=== PATIENT | female | born 1955 | race Caucasian/White ===

== ENCOUNTER 2020-06-24 02:26 | Emergency (ER) | payer MEDICARE, OTHER ==
[2020-06-24] MEDS ORDERED: Diazepam 5 MG TAB ONE (03:57)
[2020-06-24 04:22] LABS: Bacteria/HPF 1+ HPF (None Seen); Bilirubin Negative (Negative); Blood, Urine Negative (Negative); Clarity Clear (Clear); Glucose, Urine (Dipstick) Normal (Negative); Ketone, Urine Negative (Negative); Leukocyte 500 Leu/uL (Negative); Nitrite Negative (Negative); Protein, Urine (Dipstick) Negative (Neg-Trace); RBC/HPF 0-3 HPF (0-3); Squamous Epithelial 0-3 HPF (0-3); Urobilinogen Normal mg/dL (Less than 2)
--- NOTE | 2020-06-24 08:07 | RAD ---
EXAM: Two views chest PROVIDED CLINICAL HISTORY: Back pain COMPARISON: 10/07/2015 FINDINGS: Cardiac and mediastinal silhouette is unchanged in appearance. Lungs appear free of significant opaci ty. No pleural fluid or pneumothorax apparent. IVC filter demonstrated on the lateral view. IMPRESSION: No evidence for an acute cardiopulmonary process.
== END 2020-06-24 05:10 | disposition home or self-care (01) ==
LOC: ERS 02:26
DX: M62.830 Muscle spasm of back (principal); E11.9 Type 2 diabetes mellitus without complications; Z79.4 Long term (current) use of insulin; Z79.899 Other long term (current) drug therapy
CPT/HCPCS: 71046; 81003; 81015; 93005

== ENCOUNTER 2020-06-25 15:37 | Observation (INO) | payer MEDICARE, OTHER ==
[2020-06-25 16:10] LABS: #Eosinphils 0.1 thou/uL (0.0-0.7); #Lymphocytes 2.4 thou/uL (1.20-3.40); #Monocytes 0.7 thou/uL (0.11-0.59); %Basophils 0.3 % (0.0-1.0); %Eosinophils 1.1 % (0.0-10.0); %Lymphocytes 26.4 % (21.0-51.0); %Monocytes 7.2 % (0.0-10.0); Hemoglobin 11.7 g/dL (12.0-16.0); Mean Corpuscular Hemoglobin 25.8 pg (27.0-31.0); Mean Platelet Volume 8.7 fL (7.4-10.4); Platelet Count 407 thou/uL (130-400); RBC Distribution Width 13.8 % (11.5-14.5); Red Blood Cell (RBC) Count 4.55 mill/uL (4.20-5.40); White Blood Cell (WBC) Count 9.2 thou/uL (4.8-10.8)
[2020-06-25 16:39] LABS: ALT (SGPT) 10 U/L (8-55); AST (SGOT) 14 U/L (5-34); Albumin 4.2 g/dL (3.4-4.8); Alkaline Phosphatase 83 U/L (40-110); Anion Gap 17 mmol/L (10-20); BUN (Urea Nitrogen) 21 mg/dL (9.8-20.1); Bilirubin, Total 0.4 mg/dL (0.2-1.2); Calc. Creatinine Clearance 0 mL/min (70-130); Carbon Dioxide 23 mmol/L (23-31); Chloride 95 mmol/L (98-107); Estimated GFR-MDRD 26; Globulin 3.1 g/dL (2.4-3.5); Glucose 536 mg/dL (80-115); Potassium 4.9 mmol/L (3.5-5.1); Protein, Total 7.3 g/dL (6.0-8.3); Sodium 130 mmol/L (136-145)
[2020-06-25] MEDS ORDERED: Morphine 2 MG/ML VIAL ONE (17:16)
--- NOTE | 2020-06-25 18:51 | PDOC.HHP ---
Hospitalist HPI - History of Present Illness Left shoulder blade pain History of Present Illness: PCP: Dulce Maria Caballero The patient is a 65-year-old female with a past medical history significant for multiple pulmonary emboli with IVC filter in place, ovarian and endometrial cancer (last chemo treatment 2012), DM 2, HLD, chronic back pain and GERD that presents to the emergency department for the above complaint. The patient reports developing back pain for the past 2 to 3 days. She reports that the pain is located below her left scapula and radiates to her left breast intermittently. She describes the pain as sharp "spasm", exacerbated and relieved by nothing. She denies any heart palpitations, lower extremity swelling or lightheadedness. She denies feeling short of breath, cough or wheezing. No history of COPD/asthma. She thought she may have pulled a muscle in her back while moving boxes at home. She has been taking Flexeril, ibuprofen and tramadol as needed. She has been using heating pads and taking warm showers. Yesterday, her pain became so intense that she decided to come to the emergency department for further evaluation. EKG was performed and was unremarkable. UA and labs were unremarkable. Patient was discharged home with a prescription for Valium. She reports that she took the Valium and slept all night. However, the next day the pain returned. The pain became so intense today that she decided to return to the emergency department for further evaluation. She denies tearing/shearing pain, weakness to extremities. Denies any abdominal pain, nausea, vomiting, diarrhea. She denies any swelling to her lower extremities, recent surgeries or procedures, or hemoptysis. Denies any recent fever or illness. She denies any saddle anesthesia, incontinence bowel/bladder, dysuria, hematuria or vaginal discharge. . ED Course: VITAL SIGNS SunJun 25, 2020 15:39 JOHNNIE Beckham Cory BP: 128/46, Pulse: 102, Resp: 16, Temp: 97.6 (Oral), Pain: 9, O2 sat: 100 on (Room Air), Time: 06/25/2020 15:39. VITAL SIGNS SunJun 25, 2020 16:12 JOHNNIE Mitchell Lacee BP: 115/74, Pulse: 68, Resp: 18, O2 sat: 99 on (Room Air), Time: 06/25/2020 16:12. VITAL SIGNS SunJun 25, 2020 17:23 Mitchell, RN, Liliya BP: 90/72, MAP: 78, Pulse: 77, Resp: 18, Temp: 97.9 (Oral), Pain: 6, O2 sat: 100 on (Room Air), Time: 06/25/2020 17:23. VITAL SIGNS SunJun 25, 2020 17:30 Mitchell, RN, Liliya BP: 108/80, MAP: 89, Pulse: 74, Resp: 16, O2 sat: 100 on (Room Air), Time: 06/25/2020 17:30. VITAL SIGNS SunJun 25, 2020 17:53 Mitchell, RN, Liliya BP: 105/76, MAP: 85, Pulse: 76, Resp: 16, O2 sat: 100 on (Room Air), Time: 06/25/2020 17:53. Medication administration: *morphine injection 2 mg IV Push Given 17:19 06/25/2020 sodium chloride 0.9 % intravenous 1000 mL IV Fluid Infusion Given 17:19 06/25/2020 Hospitalist ROS - Review of Systems All other systems reviewed; all pertinent +/- noted in HPI/Subj - Medication Medications: HumaLOG U-100 Insulin VIAL (ML) : Strength - 100 unit/mL : SUBCUTANEOUS Patient Dose: 8 units every morning, then 8 units nightly. Lantus U-100 Insulin cartridge : Strength - 100 unit/mL : SUBCUTANEOUS Patient Dose: 15 units SC every morning glipizide/Metformin tablet : Strength - 5 mg/500 mg: ORAL Patient Dose: 1 tablet p.o. twice daily lisinopril tablet : Strength - 2.5 mg : ORAL Patient Dose: Unknown. pantoprazole oral tablet,delayed release (DR/EC) : Strength - 20 mg : ORAL Patient Dose: Unknown. pravastatin tablet : Strength - 10 mg : ORAL Patient Dose: Unknown. Valium oral 5 mg : Strength - TABLET : ORAL Patient Dose: 1 tab(s) Oral every 8 hours PRN. Allergies: Bactrim, Bentyl, dicyclomine HCl (Unconfirmed), paclitaxel, Sulfa (Sulfonamide Antibiotics), sulfamethoxazole (Unconfirmed), trimethoprim, tuberculin PPD, tuberculin,PPD,multi-puncture (Unconfirmed) Hospitalist History - Past Medical History Source: patient, family, RN notes reviewed Cardiac: reports: Hyperlipidemia Pulmonary: reports: pulmonary embolism (X3 with IVC filter in place) Gastrointestinal: reports: GERD Heme/Onc: reports: Cancer (Ovarian endometrial cancer (last chemo 2012)) Musculoskeletal: reports: Chronic low back pain Endocrine: reports: Diabetes - Past Surgical History Past Surgical History: reports: Hysterectomy, Tonsillectomy, Other (IVC filter) - Family History Family History: reports: cancer - Social History Smoking Status: Never smoker Alcohol: reports: None Drugs: reports: none Living Situation: With Family Occupation: Retired Activity level: independent ambulation - Exam General Appearance: NAD, awake alert Eye: PERRL, anicteric sclera ENT: normocephalic atraumatic Neck: supple, symmetric, no JVD Heart: RRR, no murmur, no gallops, no rubs, normal peripheral pulses Respiratory: CTAB, no wheezes, no rales, no ronchi, normal chest expansion, no tachypnea Gastrointestinal: soft, non-tender, normal bowel sounds, no bruit, no guarding, no rigidity Extremities: no cyanosis, no edema Neurological: cranial nerve grossly intact, no weakness, no focal deficits Musculoskeletal: normal tone, normal strength Psychiatric: normal affect, A&O x 3 Hospitalist Results - Labs Result Diagrams: 06/25/20 16:03 06/25/20 20:25 Lab results: WBC 9.2 thou/uL (4.8-10.8) 06/25/20 16:03 Hgb 11.7 g/dL (12.0-16.0) L 06/25/20 16:03 Hct 35.5 % (36.0-47.0) L 06/25/20 16:03 MCV 78.0 fL (78.0-98.0) 06/25/20 16:03 Plt Count 407 thou/uL (130-400) H 06/25/20 16:03 Neutrophils % 65.0 % (42.0-75.0) 06/25/20 16:03 Sodium 130 mmol/L (136-145) L 06/25/20 16:03 Potassium 4.9 mmol/L (3.5-5.1) 06/25/20 16:03 Chloride 95 mmol/L (98-107) L 06/25/20 16:03 Carbon Dioxide 23 mmol/L (23-31) 06/25/20 16:03 BUN 21 mg/dL (9.8-20.1) H 06/25/20 16:03 Creatinine 1.93 mg/dL (0.6-1.1) H 06/25/20 16:03 Glucose 536 mg/dL (80-115) H 06/25/20 16:03 Calcium 10.0 mg/dL (7.8-10.44) 06/25/20 16:03 Total Bilirubin 0.4 mg/dL (0.2-1.2) 06/25/20 16:03 AST 14 U/L (5-34) 06/25/20 16:03 ALT 10 U/L (8-55) 06/25/20 16:03 Alkaline Phosphatase 83 U/L (40-110) 06/25/20 16:03 Troponin I Less than 0.010 ng/mL (< 0.028) 06/25/20 16:03 Serum Total Protein 7.3 g/dL (6.0-8.3) 06/25/20 16:03 Albumin 4.2 g/dL (3.4-4.8) 06/25/20 16:03 - EKG Interpretation EKG: SA, no ST elevations. Hospitalist H&P A/P - Problem (1) Chest pain Code(s): R07.9 - CHEST PAIN, UNSPECIFIED Status: Acute (2) ADRIÁN (acute kidney injury) Code(s): N17.9 - ACUTE KIDNEY FAILURE, UNSPECIFIED Status: Acute (3) DM2 (diabetes mellitus, type 2) Status: Chronic (4) Hyperglycemia Code(s): R73.9 - HYPERGLYCEMIA, UNSPECIFIED Status: Acute (5) Hyponatremia Code(s): E87.1 - HYPO-OSMOLALITY AND HYPONATREMIA Status: Acute (6) History of ovarian cancer Status: Chronic (7) History of pulmonary embolism Code(s): Z86.711 - PERSONAL HISTORY OF PULMONARY EMBOLISM Status: Chronic (8) Chronic back pain Code(s): M54.9 - DORSALGIA, UNSPECIFIED; G89.29 - OTHER CHRONIC PAIN Status: Chronic - Plan Plan: 65/F with PMH PEs, ovarian cancer, DM 2, HLD and chronic back pain presents for chest pain. Admit telemetry floor, observation status. Expected length of stay less than 2 midnights. Presented tachycardic, NL BP, RR, SPO2, afebrile. EKG sinus arrhythmia, no ST elevations. Troponin negative, creatinine 1.93/GFR 25 BG 536, sodium 130 #Chest pain Heart score 5, Wells PE score 3. Differential diagnosis includes PE and aortic dissection. Hold CTA chest/CT aorta due to ADRIÁN. Trend troponins, check BNP, TSH, mag level, UA. Hold aspirin for now. Order echocardiogram and CXR. Check bilateral UE blood pressure readings. #ADRIÁN Presented creatinine 1.93. Give IV fluids. Hold metformin and lisinopril. Recheck levels in a.m. #DM2 Presented blood glucose 536. Takes glipizide/Metformin 5/500 mg p.o. twice daily Takes Levemir 15 units SC every morning Takes Humalog 8 units every morning, 8 units nightly ISS #Hyperglycemia Presented BG 536. Hold home dose oral antihyperglycemics. Start home dose Levemir 15 units SC every morning. Check hemoglobin A1c. Moderate ISS. AC/at bedtime checks. #Hyponatremia Presented sodium 130, corrected hyperglycemia 137. Stable. #History ovarian cancer Chronic. Last treated chemotherapy 2012. #History of pulmonary embolism IVC filter in place. #Chronic back pain Takes NSAIDs, tramadol and heating pad as needed. Supportive care as needed. SCDs for DVT prophylaxis. Protonix for GI prophylaxis. Full code. Discussed the case with Dr. Elise.
[2020-06-25] MEDS ORDERED: Dextrose 50% Abboject 50 ML SYRINGE SLOW IVP PRN (18:55)
[2020-06-25] MEDS ORDERED: Senokot S 8.6-50 MG TAB PO PRN (18:55)
[2020-06-25] MEDS ORDERED: Ondansetron PF 4 MG/2 ML Vial IVP PRN (18:55)
[2020-06-25] MEDS ORDERED: Ondansetron ODT 4 MG TAB PO PRN (18:55)
[2020-06-25] MEDS ORDERED: HYDROcodone/Acetaminophen 5/325 mg Tablet PO PRN (18:55)
[2020-06-25] MEDS ORDERED: Dextrose 5% in Water 1,000 ML IV PRN (18:55)
[2020-06-25] MEDS ORDERED: HumaLOG 300 UNITS/3 ML VIAL SC PRN ×2 (18:55)
[2020-06-25] MEDS ORDERED: Calcium Carbonate 500 MG ChewTAB PO PRN (18:55)
[2020-06-25 19:29] LABS: Troponin I 0.016 ng/mL (< 0.028)
[2020-06-25] MEDS ORDERED: Aspirin 325 MG TAB ONE (19:50)
--- NOTE | 2020-06-25 19:54 | RAD ---
PA AND LATERAL CHEST: 06/25/20 HISTORY: Left shoulder blade pain radiates to the anterior chest. COMPARISON: 06/24/20 study. Heart size upper limits. Mediastinal structures are unremarkable. The lungs are clear of infiltrates. No bony findings. IMPRESSION: Borderline heart size. No active intrathoracic disease. POS: OFF
[2020-06-25 20:31] LABS: Bilirubin Negative (Negative); Blood, Urine Negative (Negative); Clarity Clear (Clear); Glucose, Urine (Dipstick) Greater than 1000 mg/dL (Negative); Ketone, Urine Negative (Negative); Leukocyte 75 Leu/uL (Negative); Nitrite Negative (Negative); Protein, Urine (Dipstick) Negative (Neg-Trace); RBC/HPF 0-3 HPF (0-3); Specific Gravity, Urine 1.008 (1.002-1.036); Squamous Epithelial 0-3 HPF (0-3); Urobilinogen Normal mg/dL (Less than 2); WBC/HPF 0-3 HPF (0-3)
[2020-06-25 20:32] LABS: Bacteria/HPF Rare-Few HPF (None Seen)
[2020-06-25 20:54] LABS: Anion Gap 13 mmol/L (10-20); BUN (Urea Nitrogen) 21 mg/dL (9.8-20.1); Calc. Creatinine Clearance 0 mL/min (70-130); Carbon Dioxide 25 mmol/L (23-31); Chloride 98 mmol/L (98-107); Estimated GFR-MDRD 32; Glucose 379 mg/dL (80-115); Sodium 132 mmol/L (136-145)
[2020-06-25] MEDS: Sodium Chloride 0.9% 1,000 ML IV SCH (21:55)
[2020-06-25 22:14] LABS: Hemoglobin A1c 12.3 % (4.0-6.0)
[2020-06-25 22:31] LABS: Troponin I 0.013 ng/mL (< 0.028)
[2020-06-25 22:46] VITALS: BMI 27.2
[2020-06-26] MEDS ORDERED: Diazepam 5 MG TAB PO PRN (01:54)
[2020-06-26] MEDS ORDERED: Cyclobenzaprine 10 MG TAB PO PRN (01:54)
[2020-06-26 05:13] LABS: #Eosinphils 0.3 thou/uL (0.0-0.7); #Monocytes 0.6 thou/uL (0.11-0.59); #Neutrophils 2.7 thou/uL (1.40-6.50); %Basophils 0.4 % (0.0-1.0); %Eosinophils 4.8 % (0.0-10.0); %Lymphocytes 44.7 % (21.0-51.0); %Monocytes 9.4 % (0.0-10.0); %Neutrophils 40.7 % (42.0-75.0); Hemoglobin 9.8 g/dL (12.0-16.0); Mean Corpuscular HGB CONC 32.6 g/dL (32.0-36.0); Mean Corpuscular Volume 79.6 fL (78.0-98.0); Mean Platelet Volume 8.7 fL (7.4-10.4); Platelet Count 331 thou/uL (130-400); RBC Distribution Width 13.7 % (11.5-14.5); Red Blood Cell (RBC) Count 3.75 mill/uL (4.20-5.40); White Blood Cell (WBC) Count 6.7 thou/uL (4.8-10.8)
[2020-06-26 05:43] LABS: Anion Gap 11 mmol/L (10-20); BUN (Urea Nitrogen) 18 mg/dL (9.8-20.1); Calc. Creatinine Clearance 47 mL/min (70-130); Carbon Dioxide 23 mmol/L (23-31); Cardiac Risk 2.9 (Less than 4.5); Chloride 104 mmol/L (98-107); Cholesterol 150 mg/dl (< 200 Desired); Estimated GFR-MDRD 42; Glucose 259 mg/dL (80-115); HDL Cholesterol 51 mg/dL (>60 Neg Risk); LDL Cholesterol, Calculated 82 mg/dL; Potassium 4.2 mmol/L (3.5-5.1); Sodium 134 mmol/L (136-145); Triglycerides 83 mg/dL (Less than 150)
[2020-06-26] MEDS: Sodium Chloride 0.9% 1,000 ML IV SCH (07:52)
[2020-06-26] MEDS ORDERED: Aspirin 325 MG TAB PO SCH (08:00)
[2020-06-26] MEDS ORDERED: Insulin Glargine 15 UNITS in Pre-Filled Syringe SC SCH (09:00)
[2020-06-26] MEDS ORDERED: FLU VACC QS2020-21(65YR UP)/PF 240 MCG/0.7 ML SYRINGE IM ONE (09:00)
[2020-06-26 10:14] LABS: Iron 32 ug/dL (50-170); Iron Binding Capacity, Total 423 mcg/dL (265-497)
[2020-06-26 12:03] LABS: SARS-CoV-2 MS2 Positive; SARS-CoV-2 N Gene Negative; SARS-CoV-2 S Gene Negative; SARS-CoV-2 by NAA Not Detected (NotDetected); SARS-CoV-2 orf1ab Negative
[2020-06-26] MEDS: HYDROcodone/Acetaminophen 5/325 mg Tablet PO PRN ×2 (12:18→17:23)
--- NOTE | 2020-06-26 13:15 | CT ---
CT ANGIOGRAM THORAX WITH IV CONTRAST AND 3-D RECONSTRUCTIONS CLINICAL INDICATION: Chest pain with radiation of pain to left shoulder. Epigastric abdominal pain and belching. History o f prior pulmonary embolism. COMPARISON: 04/16/2015 FINDINGS: Pulmonary arteries: No filling defects are seen in the pulmonary arteries to suggest a pulmonary embo singh. Previously seen bilateral pulmonary emboli on study in 2015 are no longer visualized. Aorta: The aorta is normal in caliber without evidence of an aortic dissection. Lungs: Nonspecific noncalcified 5 mm pulmonary nodule in the superior segment right lower lobe. There are at least 3 2 to 3 mm noncalcified pulmonary nodules in the inferior aspect of the right middle lobe. Linear scarring versus atelectasis is present at the right lung base. Left lung is clear. The a irways appear clear. Mediastinum: No enlarged lymph nodes are seen by CT size criteria. A small hiatal hernia is seen. Thyroid gland: Normal CT appearance. Osseous structures: No suspicious lytic or sclerotic osseous lesions are identified. Chest wall: No abnormality visualized. Upper abdomen: There is partial visualization of an IVC filter. Remainder of the upper abdomen demons trates a grossly normal CT appearance for arterial phase of imaging. IMPRESSION: 1. Approximately 5 mm pulmonary nodule superior segment right lower lobe with smaller pulmonary nodul es in the right middle lobe. These pulmonary nodules are overall nonspecific. Given multiplicity, follow-up CT thorax in 6 months is recommended. 2. No CT evidence of a pulmonary embolus. 3. Small hiatal hernia.
--- NOTE | 2020-06-26 13:19 | CT ---
CT Abdomen Pelvis W Con History: Abdominal pain Comparison: CT examination 2014 Findings: Lung bases are clear. No pericardial effusion. /Fracture or dislocation of the IVC filter. No dilated loops of large or small bowel. Small fat-containing umbilical hernia. Small focus of subcu taneous gas along the anterior abdominal wall adjacent to the umbilicus versus artifact from overlying button. Mild infiltration the proximal small bowel mesentery with mild increase of size and number of mesente bari lymph nodes. No abnormal peritoneal soft tissue masses. No retroperitoneal periaortic adenopathy. No acute osseous abnormality. Impression: 1. No acute inflammatory process in the abdomen or pelvis. 2. Prior pelvic mass resection without evidence for recurrence. 3. Chronic proximal small bowel mesenteritis.
[2020-06-26 15:32] VITALS: BP 122/56; TEMP 97.8
[2020-06-26] MEDS ORDERED: Iopamidol-370 76% 500 ML 1 ML ONE (15:50)
[2020-06-26] MEDS ORDERED: Simvastatin 10 MG TAB PO SCH (21:00)
--- NOTE | 2020-06-26 22:28 | DIS ---
DATE OF ADMISSION: 06/25/2020 DATE OF DISCHARGE: 06/26/2020 DISCHARGE DIAGNOSES: 1. Left subscapular pain. 2. Acute kidney injury. 3. Diabetes mellitus. 4. Hypoglycemia. 5. Hyponatremia. 6. History of ovarian cancer. 7. History of pulmonary embolism. 8. Chronic back pain. BRIEF HOSPITAL COURSE: This is a 65-year-old female patient who has a history of pulmonary embolism, status post IVC filter, ovarian cancer, diabetes mellitus, hyperlipidemia, and chronic back pain, who presented with multiple episodes of recurrent back pain. She describes the pain as located in the left subscapular area and sometimes radiating across her back. On initial assessment, there are no concerning EKG changes, troponin remained flat and there were no abnormal or concerning arrhythmias. She had a CT angiogram after the initial renal function recovered as well as an abdominal CT scan both showed no sclerotic lesions in the spine. However, she had nodules bilaterally in the lungs about 5 mm, which would require a repeat CT scan in six months. Her back pain did improve while on admission with pain medication. However, there was no clear etiology. She was discharged to continue on tramadol, heating pads, and Flexeril as needed. She will follow up with PCP for further evaluation. She was also told she would need a repeat x-ray of the chest in six months. DISCHARGE EXAMINATION: GENERAL: The patient was in bed, in no acute distress. CARDIOVASCULAR SYSTEM: S1, S2 present and normal. No murmurs, gallops, or rubs. RESPIRATORY SYSTEM: Air entry adequate bilaterally. No rhonchi or rales. ABDOMEN: Benign. EXTREMITIES: No edema. DISCHARGE CONDITION: Stable. CONSULTATIONS: None. Job ID: [id number]
== END 2020-06-26 18:50 | disposition home or self-care (01) ==
LOC: ERS 15:37 → 2SW 18:18
PROVIDERS: ADMIT Internal Medicine; ATTEND Internal Medicine
DX: M25.512 Pain in left shoulder (principal); N17.9 Acute kidney failure, unspecified; E11.649 Type 2 diabetes mellitus with hypoglycemia without coma; E11.65 Type 2 diabetes mellitus with hyperglycemia; E87.1 Hypo-osmolality and hyponatremia; G89.29 Other chronic pain; M54.9 Dorsalgia, unspecified; E78.5 Hyperlipidemia, unspecified; K21.9 Gastro-esophageal reflux disease without esophagitis; R91.1 Solitary pulmonary nodule; K44.9 Diaphragmatic hernia without obstruction or gangrene; Z85.43 Personal history of malignant neoplasm of ovary; Z85.44 Personal history of malignant neoplasm of other female genital organs; Z86.711 Personal history of pulmonary embolism; Z79.4 Long term (current) use of insulin; Z79.82 Long term (current) use of aspirin; Z79.899 Other long term (current) drug therapy; Z88.1 Allergy status to other antibiotic agents; Z88.2 Allergy status to sulfonamides; Z88.8 Allergy status to other drugs, medicaments and biological substances; Z20.828 Contact with and (suspected) exposure to other viral communicable diseases
CPT/HCPCS: 71046; 71275; 74177; 80048 ×2; 80061; 81001; 82728; 82962; 83036; 83540; 83550; 83735; 83880; 84484 ×2; 85025; 93005; 93306; 94760 ×2; 96361 ×2; 96374; 99285; G0378 ×3; J2270; U0003; 36415; 36416; 80053; 84443; 87635; J1815; Q9967

== ENCOUNTER 2020-08-16 10:35 | Outpatient (CLI) | payer MEDICARE, OTHER ==
--- NOTE | 2020-08-16 11:26 | RAD ---
XR Cerv Sp Ap Lat STANDARD History: Pain Comparison: None. Findings: Open-mouth odontoid view digits mild right-sided C1/C2 narrowing. No acute cervical spine f racture. There is fusion of the C2/C3 vertebral bodies and posterior elements. Moderate C3/C4 degenerative dis c space height loss with circumferential disc osteophyte complex. Mild C3/C4 facet arthrosis. Visualized ribs are intact. 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 No acute osseous abnormality.
--- NOTE | 2020-08-16 11:28 | RAD ---
XR Thoracic Spine 2 View History: Thoracic spine pain Comparison: None. Findings: No acute fracture or malalignment. Low-grade T3-T6 degenerative disc space height loss with small osteophyte formation. No listhesis. Visualized ribs are intact. Impression: Low-grade degenerative change upper thoracic spine.
== END 2020-08-16 10:36 | disposition home or self-care (01) ==
LOC: TBSIIMAG 10:35
PROVIDERS: ATTEND Neurological Surgery
DX: M54.6 Pain in thoracic spine (principal); M54.2 Cervicalgia; M47.814 Spondylosis without myelopathy or radiculopathy, thoracic region; M47.812 Spondylosis without myelopathy or radiculopathy, cervical region; Z98.1 Arthrodesis status
CPT/HCPCS: 72040; 72070

== ENCOUNTER 2020-10-28 12:31 | Outpatient (CLI) | payer MEDICARE, OTHER ==
--- NOTE | 2020-10-28 13:19 | CT ---
EXAM: CT of the chest without contrast HISTORY: Lung nodules COMPARISON: 06/26/2020 TECHNIQUE: Multiple contiguous axial images were obtained in a CT the chest without contrast. Coronal and sagittal reformats were performed. FINDINGS: HEART: Normal in size without focal cardiac abnormality MEDIASTINUM: No hilar or mediastinal lymphadenopathy. There is a small stable hiatal hernia. Evaluati on of the mediastinum is limited without IV contrast. LUNGS: There is a stable 5 mm nodule in the superior aspect of the right lower lobe. There are multip le adjacent nodules in the right middle lobe measuring up to 3 mm in size. No new primary nodules are seen. PLEURAL SPACE: No pneumothorax or pleural effusion. CHEST WALL SOFT TISSUES: Unremarkable OSSEOUS STRUCTURES: Mild degenerative changes in the spine. VISUALIZED SUBDIAPHRAGMATIC STRUCTURES: Unremarkable IMPRESSION: Stable pulmonary nodules.
== END 2020-10-28 12:32 | disposition home or self-care (01) ==
LOC: BICCT 12:31
PROVIDERS: ATTEND Internal Medicine Hematology & Oncology
DX: R91.8 Other nonspecific abnormal finding of lung field (principal)
CPT/HCPCS: 71250

== ENCOUNTER 2022-04-11 09:29 | Outpatient (CLI) | payer MEDICARE, OTHER | END 2022-04-11 09:30 | disposition home or self-care (01) | LOC: BICCT 09:29 | PROVIDERS: ATTEND Internal Medicine Critical Care Medicine | DX: R91.8 Other nonspecific abnormal finding of lung field (principal) | CPT/HCPCS: 82565 ==

== ENCOUNTER 2023-07-09 08:22 | Outpatient (CLI) | payer MEDICARE, OTHER | END 2023-07-09 08:23 | disposition home or self-care (01) | LOC: RAD 08:22 | PROVIDERS: ATTEND Physician Assistant Medical | DX: R13.19 Other dysphagia (principal); K44.9 Diaphragmatic hernia without obstruction or gangrene; K22.2 Esophageal obstruction | CPT/HCPCS: 74220 ==

== ENCOUNTER 2024-01-29 11:26 | Observation (INO) | payer MEDICARE, OTHER ==
[2024-01-29 12:04] LABS: #Basophils 0.03 10x3/uL (0.0-0.2); %Basophils 0.3 % (0.0-1.0); %Eosinophils 3.5 % (0.0-10.0); %Lymphocytes 30.3 % (21.0-51.0); %Monocytes 7.3 % (0.0-10.0); %Neutrophils 58.1 % (42.0-75.0); Hematocrit 43.2 % (36.0-47.0); Hemoglobin 13.6 g/dL (12.0-16.0); Mean Corpuscular HGB CONC 31.5 g/dL (32.0-36.0); Mean Corpuscular Volume 85.7 fL (78.0-98.0); Mean Platelet Volume 10.2 fL (7.4-10.4); Platelet Count 415 10x3/uL (130-400); RBC Distribution Width 14.2 % (11.5-14.5); Red Blood Cell (RBC) Count 5.04 mill/uL (4.20-5.40)
[2024-01-29 12:14] LABS: ALT (SGPT) 23 U/L (8-55); AST (SGOT) 18 U/L (5-34); Albumin 3.7 g/dL (3.4-4.8); Alkaline Phosphatase 102 U/L (40-110); Anion Gap 14 mmol/L (10-20); BUN (Urea Nitrogen) 23 mg/dL (9.8-20.1); Bilirubin, Total 0.3 mg/dL (0.2-1.2); Calc. Creatinine Clearance 0 mL/min (70-130); Calcium 10.9 mg/dL (7.8-10.44); Carbon Dioxide 27 mmol/L (23-31); Chloride 105 mmol/L (98-107); Estimated GFR 41; Globulin 4.1 g/dL (2.4-3.5); Glucose 153 mg/dL (80-115); Potassium 4.6 mmol/L (3.5-5.1); Protein, Total 7.8 g/dL (5.8-8.1); Sodium 141 mmol/L (136-145)
[2024-01-29] MEDS ORDERED: Acetaminophen 650 MG Suppository PR PRN (12:45)
[2024-01-29] MEDS ORDERED: Ondansetron PF 4 MG/2 ML Vial IVP PRN (12:45)
[2024-01-29] MEDS ORDERED: Acetaminophen 325 MG TAB PO PRN (12:45)
[2024-01-29] MEDS ORDERED: Ondansetron ODT 4 MG TAB PO PRN (12:45)
[2024-01-29] MEDS ORDERED: Glucagon 1 MG/ML KIT IM PRN (12:47)
[2024-01-29] MEDS ORDERED: Dextrose 5% in Water 1,000 ML IV PRN (12:47)
[2024-01-29] MEDS ORDERED: Dextrose 50% Abboject 50 ML SYRINGE SLOW IVP PRN (12:47)
[2024-01-29 13:54] LABS: Troponin I Less than 0.010 ng/mL (< 0.028)
[2024-01-29] MEDS: Enoxaparin 40 MG (0.4 mL) SYRINGE SC SCH (16:05)
[2024-01-29] MEDS: Aspirin 81 mg Enteric Coated Tablet PO SCH ×2 (16:05→16:38)
[2024-01-29 16:22] VITALS: BMI 34.9
[2024-01-29 17:16] LABS: Amphetamine Not Detected (NotDetected); Barbiturates Screen Not Detected (NotDetected); Benzodiazepine Screen Not Detected (NotDetected); Cocaine Metabolite Screen Not Detected (NotDetected); Methadone Not Detected (NotDetected); Methamphetamine Not Detected (NotDetected); Opiate Screen Not Detected (NotDetected); Oxycodone Screen Not Detected (NotDetected); Phencyclidine (PCP) Not Detected (NotDetected); THC/Cannabinoid Screen Not Detected (NotDetected); Tricyclic Screen Not Detected (NotDetected)
[2024-01-29] MEDS: Atorvastatin Calcium 40 MG TAB PO SCH (21:31)
[2024-01-29] MEDS: HumaLOG 300 UNITS/3 ML VIAL SC PRN (21:34)
[2024-01-30 05:01] LABS: #Basophils 0.03 10x3/uL (0.0-0.2); %Basophils 0.4 % (0.0-1.0); %Eosinophils 4.1 % (0.0-10.0); %Lymphocytes 35.4 % (21.0-51.0); %Monocytes 9.7 % (0.0-10.0); %Neutrophils 49.9 % (42.0-75.0); Hematocrit 39.6 % (36.0-47.0); Hemoglobin 12.6 g/dL (12.0-16.0); Mean Corpuscular HGB CONC 31.8 g/dL (32.0-36.0); Mean Corpuscular Hemoglobin 26.6 pg (27.0-31.0); Mean Corpuscular Volume 83.5 fL (78.0-98.0); Mean Platelet Volume 10.4 fL (7.4-10.4); Platelet Count 350 10x3/uL (130-400); RBC Distribution Width 14.3 % (11.5-14.5); Red Blood Cell (RBC) Count 4.74 mill/uL (4.20-5.40)
[2024-01-30 05:22] LABS: Anion Gap 12 mmol/L (10-20); BUN (Urea Nitrogen) 21 mg/dL (9.8-20.1); Calc. Creatinine Clearance 58 mL/min (70-130); Calcium 10.7 mg/dL (7.8-10.44); Carbon Dioxide 26 mmol/L (23-31); Cardiac Risk 2.7 (Less than 4.5); Chloride 106 mmol/L (98-107); Cholesterol 174 mg/dl (< 200 Desired); Estimated GFR 48; Glucose 122 mg/dL (80-115); HDL Cholesterol 65 mg/dL (>60 Neg Risk); LDL Cholesterol, Calculated 87 mg/dL; Potassium 3.8 mmol/L (3.5-5.1); Sodium 140 mmol/L (136-145); Triglycerides 111 mg/dL (Less than 150)
[2024-01-30] MEDS: Aspirin 81 mg Enteric Coated Tablet PO SCH (08:34)
[2024-01-30] MEDS: Pantoprazole DR 40 MG TAB PO SCH (08:34)
[2024-01-30 12:06] VITALS: BP 129/52; TEMP 98.7
== END 2024-01-30 14:31 | disposition home or self-care (01) ==
LOC: ERS 11:26 → SUATTDRO 11:26 → ERHOLD 12:46 → 2SE 15:47
PROVIDERS: ADMIT Family Medicine; ATTEND Family Medicine
DX: R42 Dizziness and giddiness (principal); E11.9 Type 2 diabetes mellitus without complications; N17.9 Acute kidney failure, unspecified; K21.9 Gastro-esophageal reflux disease without esophagitis; R29.90 Unspecified symptoms and signs involving the nervous system; Z86.711 Personal history of pulmonary embolism; Z90.710 Acquired absence of both cervix and uterus; Z79.84 Long term (current) use of oral hypoglycemic drugs; Z88.2 Allergy status to sulfonamides; Z88.8 Allergy status to other drugs, medicaments and biological substances; Z79.82 Long term (current) use of aspirin; Z79.899 Other long term (current) drug therapy; Z90.89 Acquired absence of other organs; R13.19 Other dysphagia
CPT/HCPCS: 0042T; 70496; 70498; 70551; 71045; 80048; 80053; 80061; 80306; 82962 ×2; 84484; 85025 ×2; 93005; 95700; 95711; 95819; 96372; 97535; 99285; G0378 ×3; J1650; 36415; 36416; 70450; J1815

== ENCOUNTER 2024-06-26 12:47 | Emergency (ER) | payer MEDICARE, OTHER | END 2024-06-26 16:00 | disposition home or self-care (01) | LOC: ERS 12:47 | DX: L03.311 Cellulitis of abdominal wall (principal); E11.9 Type 2 diabetes mellitus without complications; Z86.711 Personal history of pulmonary embolism; Z79.899 Other long term (current) drug therapy; Z79.82 Long term (current) use of aspirin ==

== ENCOUNTER 2024-07-08 14:14 | Outpatient (CLI) | payer MEDICARE, OTHER | END 2024-07-08 14:15 | disposition home or self-care (01) | LOC: RAD 14:14 | PROVIDERS: ATTEND Internal Medicine Critical Care Medicine | DX: R06.00 Dyspnea, unspecified (principal) | CPT/HCPCS: 71046 ==